=== PATIENT | male | born 2005 | race Caucasian/White ===

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

== ENCOUNTER → 2023-02-15 | Outpatient (CLI) | payer BC ==
[~2023-02-15] MED LIST changes: +CEPHALEXIN500 M1 PO; +IBU800 MG PO
== END | disposition home or self-care (01) ==
LOC: RAD 07:48
PROVIDERS: ATTEND Nurse Practitioner Family
DX: S42.012A Anterior displaced fracture of sternal end of left clavicle, initial encounter for closed fracture (principal); X58.XXXA Exposure to other specified factors, initial encounter; Y93.89 Activity, other specified; Y92.89 Other specified places as the place of occurrence of the external cause; Y99.8 Other external cause status